=== PATIENT | female | born 1970 ===

== ENCOUNTER 2025-07-29 14:53 | Outpatient (CLI) | payer BC, SELFPAY ==
[2025-07-30 10:27] LABS: HBs Antibody, Quant <3.1 mIU/mL (See Note); Hepatitis B Surface Ab Negative (See Note)
[2025-07-30 11:02] LABS: Rubella IgG Ab (UVM) Negative (See Note)
== END 2025-07-29 14:54 | disposition home or self-care (01) ==
LOC: LBO 14:55
PROVIDERS: Visit Provider Nurse Practitioner Family
DX: Z02.1 Encounter for pre-employment examination (principal)
CPT/HCPCS: 36415; 86706; 87340; 86735; 86762; 86765